=== PATIENT | female | born 1950 ===

== ENCOUNTER 2018-09-16 08:22 | Inpatient (IN) | payer OTHER ==
[~2018-09-16] VITALS: Ht 160 cm; Wt 90.7 kg
[2018-09-30] MEDS ORDERED: JANUVIA100 MG PO (12:51)
[2018-09-30] MEDS ORDERED: ZOCOR20 MG PO (12:51)
[2018-09-30] MEDS ORDERED: LISINOPRIL20 MG PO (12:51)
[2018-09-30] MEDS ORDERED: CYMBALTA30 MG PO (12:52)
[2018-09-30] MEDS ORDERED: ELMIRON100 MG PO (12:52)
[2018-09-30] MEDS ORDERED: LANTUS (12:53)
[2018-10-06] MEDS ORDERED: DOCUSATE SODIU100 MG PO (07:52)
[2018-10-06] MEDS ORDERED: GABAPENTIN800 MG PO (07:52)
[2018-10-06] MEDS ORDERED: AMOX-CLAV 875-1 EACH PO (07:53)
[2018-10-06] MEDS ORDERED: CLONAZEPAM1 MG PO (07:54)
[2018-10-06] MEDS ORDERED: PERCOCET 5-3251 EACH PO (07:54)
== END 2018-10-06 17:06 | DRG 455 ==
LOC: SURG 10-05 08:24 → O/R 10-05 08:24 → SURH 10-05 12:15 → SURG 10-05 16:06 → MEDI 10-05 16:06 → SURG 10-06 17:06
PROVIDERS: Orthopaedic Surgery Orthopaedic Surgery of the Spine
PROC: 0SG0071 Fusion of Lumbar Vertebral Joint with Autologous Tissue Substitute, Posterior Approach, Posterior Column, Open Approach (ICD-10-PCS; 2018-10-05)
PROC: 0ST20ZZ Resection of Lumbar Vertebral Disc, Open Approach (ICD-10-PCS; 2018-10-05)
PROC: 0SG00AJ Fusion of Lumbar Vertebral Joint with Interbody Fusion Device, Posterior Approach, Anterior Column, Open Approach (ICD-10-PCS; 2018-10-05)
PROC: 07DS3ZZ Extraction of Vertebral Bone Marrow, Percutaneous Approach (ICD-10-PCS; 2018-10-05)
PROC: 4A12X4Z Monitoring of Cardiac Electrical Activity, External Approach (ICD-10-PCS; 2018-10-05)
PROC: 0SG00A0 Fusion of Lumbar Vertebral Joint with Interbody Fusion Device, Anterior Approach, Anterior Column, Open Approach (ICD-10-PCS; principal; 2018-10-05 12:45)
DX: M48.061 Spinal stenosis, lumbar region without neurogenic claudication (principal); M51.16 Intervertebral disc disorders with radiculopathy, lumbar region; M43.16 Spondylolisthesis, lumbar region; I10 Essential (primary) hypertension; E11.9 Type 2 diabetes mellitus without complications